=== PATIENT | female | born 1970 | race Caucasian/White ===

== ENCOUNTER 2018-03-11 06:00 | Emergency (ER) | payer BC, OTHER ==
[~2018-03-11] VITALS: Ht 160 cm; Wt 52.2 kg
[2018-03-11 07:30] LABS: Urine Bacteria NONE SEEN /hpf (None Seen); Urine Blood TRACE /uL (Negative); Urine Hyaline Cast FEW /lpf (0 - 2); Urine Mucus FEW (None Seen); Urine Specific Gravity 1.026 (1.001-1.035); Urine WBC 2 /hpf (0 - 5)
[2018-03-11 10:11] LABS: Eosinophils # (auto) 0 uL; Hematocrit 49.5 % (36.0-46.0); Hemoglobin 17.8 g/dL (12.2-16.2); Lymphocytes # (auto) 1.3 uL; Lymphocytes % (auto) 12.5 % (10.0-50.0); Mean Corpuscular Hemoglobin 33.1 pg (28.0-32.0); Monocytes # (auto) 0.4 uL; Red Cell Distribution Width 14.2 % (11.8-14.3); White Blood Cell 10.3 10^3/uL (4.4-10.8)
[2018-03-11 10:13] LABS: Basophils # (auto) 0.1 uL; Basophils % (auto) 1.2 % (0.0-2.0); Monocytes % (auto) 3.8 % (0.0-12.0); Neutrophils # (auto) 8.5 uL; Neutrophils % (auto) 82.5 % (37.0-80.0); Platelet Count (auto) 378 10^3/uL (140-450); Red Blood Cells 5.38 10^6/uL (4.0-5.20)
[2018-03-11 10:26] LABS: Albumin 4.5 g/dL (3.4-5.0); BUN/Creatinine Ratio 16.4; Calcium 9.6 mg/dL (8.5-10.1); Potassium 3.7 mmol/L (3.5-5.1)
[2018-03-11 10:29] LABS: Bilirubin, Total 0.6 mg/dL (0.2-1.0); Total Protein 9.4 g/dL (6.4-8.2)
[2018-03-11] MEDS ORDERED: SODIUM CHLORIDE 0.9% 1,000 ML IVB ONE (10:46)
[2018-03-11] MEDS ORDERED: PANTOPRAZOLE 40 MG/10 ML VIAL IV STA (10:46)
[2018-03-11] MEDS ORDERED: MORPHINE SULFATE 4 MG/ML SYR/VIAL IV ONE (11:00)
[2018-03-11] MEDS ORDERED: PROCHLORPERAZINE EDISYLATE 5 MG/ML 2ML VIAL IV ONE (11:00)
[2018-03-11 15:11] VITALS: BP 112/68
== END 2018-03-11 15:14 | disposition home or self-care (01) ==
LOC: ER 06:00 → EDBD 06:00 → ER 15:14
DX: K29.00 Acute gastritis without bleeding (principal); E78.5 Hyperlipidemia, unspecified; F17.210 Nicotine dependence, cigarettes, uncomplicated
CPT/HCPCS: 36415; 80053; 81001; 82150; 83690; 85025; 94761; 96361; 96374; 96375; 99283; C9113; J0780; J2270; J7030

== ENCOUNTER 2018-06-18 18:06 | Emergency (ER) | payer BC ==
[~2018-06-18] VITALS: Ht 170.2 cm; Wt 63.5 kg
[2018-06-18 19:01] LABS: Eosinophils # (auto) 0 uL; Lymphocytes # (auto) 3.2 uL; Monocytes # (auto) 0.6 uL; Monocytes % (auto) 6.7 % (0.0-12.0); Neutrophils % (auto) 54.4 % (37.0-80.0)
[2018-06-18 19:03] LABS: Basophils # (auto) 0.1 uL; Basophils % (auto) 0.7 % (0.0-2.0); Eosinophils % (auto) 0.4 % (0.0-7.0); Hematocrit 48.5 % (36.0-46.0); Hemoglobin 16.6 g/dL (12.2-16.2); Lymphocytes % (auto) 37.8 % (10.0-50.0); Mean Corpuscular Hemoglobin 34.9 pg (28.0-32.0); Mean Corpuscular Hgb Conc. 34.2 g/dL (32.0-36.0); Mean Corpuscular Volume 102.1 fL (80.0-100.0); Neutrophils # (auto) 4.7 uL; Nucleated Red Blood Cells % 0.1 %; Platelet Count (auto) 312 10^3/uL (140-450); Red Blood Cells 4.75 10^6/uL (4.0-5.20); Red Cell Distribution Width 12.8 % (11.8-14.3); White Blood Cell 8.6 10^3/uL (4.4-10.8)
[2018-06-18] MEDS ORDERED: SODIUM CHLORIDE 0.9% 1,000 ML IV ONE (19:15)
[2018-06-18 19:18] LABS: Albumin 4.1 g/dL (3.4-5.0); Calcium 8.9 mg/dL (8.5-10.1); Potassium 3.1 mmol/L (3.5-5.1)
[2018-06-18 19:20] LABS: BUN/Creatinine Ratio 9.2; Bilirubin, Total 0.4 mg/dL (0.2-1.0); Total Protein 8.1 g/dL (6.4-8.2)
[2018-06-18 19:21] LABS: Salicylate 3.4 mg/dL (2.8-20.0)
[2018-06-18 19:25] LABS: Acetaminophen < 2.0 ug/mL (10-30)
[2018-06-18 19:32] LABS: Urine WBC None Seen /hpf (0 - 5)
[2018-06-18 19:43] LABS: Urine Bacteria NONE SEEN /hpf (None Seen); Urine Blood Negative /uL (Negative); Urine Specific Gravity 1.001 (1.001-1.035)
[2018-06-18 19:54] LABS: Amphetamine Screen, Urine NEGATIVE (NEGATIVE); Barbiturate Scree,Urine NEGATIVE (NEGATIVE); Benzodiazephine Screen, Urine NEGATIVE (NEGATIVE); Cannabinoid Screen, Urine NEGATIVE (NEGATIVE); Cocaine Screen, Urine NEGATIVE (NEGATIVE); Opiate Scree,Urine NEGATIVE (NEGATIVE); Phencyclidine Screen, Urine NEGATIVE (NEGATIVE)
[2018-06-19] MEDS ORDERED: POTASSIUM EFFERVESENT TAB 25 MEQ PO ONE (00:45)
[2018-06-19] MEDS ORDERED: LORazepam 0.5 MG TAB PO ONE (03:45)
[2018-06-19] MEDS ORDERED: HALOPERIDOL 1 MG TAB PO PRN (05:30)
[2018-06-19] MEDS ORDERED: diphenhdrAMINE HCL 25 MG CAP PO PRN (05:30)
[2018-06-19] MEDS: LORazepam 0.5 MG TAB PO PRN ×2 (07:21→20:14)
[2018-06-19] MEDS ORDERED: AFRIN PRN (10:00)
[2018-06-19 20:57] VITALS: BP 111/55
== END 2018-06-19 21:13 | disposition short-term general hospital (02) ==
LOC: EDBD 18:06 → ER 18:17
DX: F32.9 Major depressive disorder, single episode, unspecified (principal); R45.851 Suicidal ideations; F41.9 Anxiety disorder, unspecified; E78.5 Hyperlipidemia, unspecified; F17.210 Nicotine dependence, cigarettes, uncomplicated; F11.20 Opioid dependence, uncomplicated
CPT/HCPCS: 36415; 71045; 80053; 80307; 80320; 80329; 81001; 81025; 85025

== ENCOUNTER 2021-07-26 18:21 | Emergency (ER) | payer SELFPAY ==
[~2021-07-26] VITALS: Ht 170.2 cm; Wt 63.5 kg
[2021-07-26] MEDS ORDERED: NEOMYCIN-BACITRACIN-POLYM UNITDOSE PKG TOP OINT TOP ONE (19:45)
[2021-07-26] MEDS ORDERED: LIDOCAINE 1% (LOCAL ANESTH.) PF 5ml SDV ID ONE (19:45)
[2021-07-26 20:41] VITALS: BP 114/71
[2021-07-26] MEDS ORDERED: CEPH-322 PO (21:41)
== END 2021-07-26 22:00 | disposition left against medical advice (07) ==
LOC: ER 18:21
DX: S51.811A Laceration without foreign body of right forearm, initial encounter (principal); F17.210 Nicotine dependence, cigarettes, uncomplicated; J44.9 Chronic obstructive pulmonary disease, unspecified; E78.5 Hyperlipidemia, unspecified; Z53.29 Procedure and treatment not carried out because of patient's decision for other reasons; W26.0XXA Contact with knife, initial encounter; Y93.89 Activity, other specified; Y92.89 Other specified places as the place of occurrence of the external cause; Y99.8 Other external cause status
CPT/HCPCS: 12002